=== PATIENT | male | born 1940 | race Hispanic/Latino ===

== ENCOUNTER 2019-04-19 20:08 | Emergency (ER) | payer MEDICARE ==
[~2019-04-19] VITALS: Ht 172.7 cm; Wt 70.8 kg
--- NOTE | 2019-04-19 21:45 | Diagnostic Imaging Report ---
Pelvis complete Indication: ^s/p fall ^20190419 ^2114 ^Y Technique: Two AP images of the pelvis obtained. Comparison: None Findings: Pelvis positioning is suboptimal. Right hip prosthesis is present. The acetabular cup is well seated without surrounding lucency. The femoral stem appears to be dislocated from the acetabular cup. There is no acute fracture associated with the hardware. The left hip is intact and normal in morphology. There are degenerative changes of the lower lumbar spine with partial sacralization L5 on the right. No diastases the pubic symphysis or sacroiliac joints. Pubic rami are intact. IMPRESSION: Suboptimal patient positioning. A dislocated right hip prosthesis is suspected cannot be excluded. No acute fracture. Signed by: Dr. Jeanie Gillespie MD on 04/19/2019 9:42 PM
--- NOTE | 2019-04-19 21:47 | Diagnostic Imaging Report ---
EXAMINATION: CHEST SINGLE (PORTABLE) COMPARISON: None INDICATION: Fall ^s/p fall ^20190419 ^2114 ^Y DISCUSSION: Frontal view of the chest obtained at 1 hours. The patient's chin overlies the upper chest. HEART AND MEDIASTINUM: The heart is normal in size. The aorta is tortuous LINES: None. LUNGS: Low lung volumes.. No pneumonia or pulmonary edema. PLEURA: No pleural effusion or pneumothorax. BONES AND SOFT TISSUES: No acute fracture or dislocation. There are degenerative changes of the spine. The soft tissues are normal. IMPRESSION: No acute traumatic pathology by x-ray. Signed by: Dr. Jeanie Gillespie MD on 04/19/2019 9:44 PM
--- NOTE | 2019-04-19 21:53 | Diagnostic Imaging Report ---
EXAMINATION: Head CT without contrast. HISTORY:Fall. COMPARISON:None. TECHNIQUE: Multidetector axial images were obtained from the foramen magnum to the vertex without contrast. The images were reconstructed using brain and bone algorithms. Thin section brain images were reformatted into coronal and sagittal planes. Dose modulation, iterative reconstruction, and/or weight based adjustment of the mA/kV was utilized to reduce the radiation dose to as low as reasonably achievable. Intravenous contrast: None IMAGE QUALITY: Acceptable. FINDINGS: Skull/scalp: Mild right frontal scalp soft tissue edema/hematoma and moderate right periorbital soft tissue edema/hematoma that extends over the right prezygomatic region. No radiopaque foreign body or soft tissue emphysema. No acute depressed or displaced calvarial fracture. Age indeterminate possible acute fracture of left nasal bone is partially visualized. Parenchyma: Nonspecific bilateral frontoparietal white matter patchy and confluent hypodensity are likely related to small vessel ischemic changes. No acute hemorrhage, mass or acute major vascular territorial infarct. Arteries: No density suggestive of thrombosis. Dural sinuses: No abnormal density suggestive of thrombosis. Ventricles: Moderate compensated dilatation due to volume loss. No hydrocephalus. Extra-axial spaces: Posterior fossa, retrocerebellar extra-axial cystic lesion with internal septation and mild regional mass effect represents an arachnoid cyst. Brain volume: Advanced generalized cerebral volume loss. Craniocervical junction: No mass, Chiari malformation, or basilar invagination. Sella: No mass. Paranasal/mastoid sinuses: Imaged portions unremarkable. IMPRESSION: 1. Mild right frontal scalp and moderate right periorbital soft tissue edema/hematoma. No acute calvarial fracture. 2. No acute posttraumatic intracranial abnormality. 3. Mild supratentorial white matter microvascular ischemic changes. 4. Advanced generalized cerebral volume loss. Signed by: Dr. Nenita Radford M.D. on 04/19/2019 9:50 PM
--- NOTE | 2019-04-19 22:00 | Diagnostic Imaging Report ---
History: Fall. Comparison studies: None Technique: Axial images were obtained through the cervical region.. Coronal and sagittal images reconstructed from the axial data. Dose modulation, iterative reconstruction, and/or weight based adjustment of the mA/kV was utilized to reduce the radiation dose to as low as reasonably achievable. Intravenous contrast: None Findings: Fractures: None. Soft tissue injuries: None. Atlantoaxial articulation: Intact. Alignment: Reversal of normal cervical lordosis is either positional or due to muscle spasm. No scoliosis. 2 mm grade 1 anterolisthesis at C7-T1, likely degenerative. Cervicomedullary junction: No abnormalities. The foramen magnum is patent. Soft tissues: No abnormalities. Vertebrae: No fractures, infection or neoplasm. Degenerative changes: Moderate to severe degenerative changes in the anterior atlantodental joint. C2-C3: Mild bilateral foraminal stenosis due to facet and uncovertebral arthrosis. C3-C4: Posterior disc osteophyte complex results in moderate canal stenosis. Severe right and moderate left foraminal stenosis due to facet and uncovertebral arthrosis. C4-C5: Moderate bilateral foraminal stenosis due to facet and uncovertebral arthrosis. C5-C6: Severe degenerative disc disease. Posterior disc osteophyte complex results in moderate canal stenosis. Severe bilateral foraminal stenosis due to facet and uncovertebral arthrosis. C6-C7: Moderate to severe degenerative disc disease. Posterior disc osteophyte complex results in mild canal stenosis. Severe right and mild left foraminal stenosis due to facet and uncovertebral arthrosis. C7-T1: Severe left foraminal stenosis due to facet and uncovertebral arthrosis. IMPRESSION: 1. No acute cervical spine fracture or dislocation. Reversal of normal cervical lordosis is either positional or due to muscle spasm. 2. Ligament, spinal cord and or vascular abnormalities cannot be excluded on the basis of this examination. 3. Cervical spondylosis as detailed above. Signed by: Dr. Nenita Radford M.D. on 04/19/2019 9:57 PM
--- NOTE | 2019-04-19 22:06 | Diagnostic Imaging Report ---
History:Fall. Comparison studies: None Technique: Axial images were obtained through the maxillofacial region. Coronal and sagittal images reconstructed from the axial data. Dose modulation, iterative reconstruction, and/or weight based adjustment of the mA/kV was utilized to reduce the radiation dose to as low as reasonably achievable. Intravenous contrast: None Findings: Soft tissues: Moderate right periorbital and premaxillary soft tissue edema/hematoma. No soft tissue emphysema or radiopaque foreign body. Suboptimal evaluation due to dental amalgam artifacts. Bones: Acute mildly displaced fracture of bilateral nasal bones and frontal process of left maxilla. Orbits: Globes: Grossly intact. No retrobulbar hemorrhage. Extra or intraconal abnormalities: None. Paranasal sinuses: Mild mucosal thickening in bilateral ethmoid sinuses. Incidental finding: Multiple missing teeth, multifocal dental caries and endodontal disease, the activity of which is to be determined clinically. IMPRESSION: 1. Moderate right periorbital and premaxillary soft tissue edema/hematoma. 2. Acute mildly displaced fracture of bilateral nasal bones and frontal process of left maxilla. Signed by: Dr. Nenita Radford M.D. on 04/19/2019 10:02 PM
--- NOTE | 2019-04-19 23:55 | Diagnostic Imaging Report ---
Hip complete Indication: ^EVAL FINDING ON PELVIS XRAY ^Y Technique: AP and frogleg views of right hip obtained. Comparison: Pelvis x-rays 2110 hours Findings: No change in position of the right hip prosthesis. Dislocation of the femoral stem from the acetabular cup cannot be excluded. There is callus formation adjacent to the inferior tip of the femoral component suggestive of a healed fracture. There are 3 screws in the proximal diaphysis without evidence of fracture or lucency to suggest loosening. IMPRESSION: No change in appearance of the right hip prosthesis. Again, dislocation of the prosthesis cannot be excluded. Healed fracture deformity of the proximal diaphysis of the femur. Signed by: Dr. Jeanie Gillespie MD on 04/19/2019 11:52 PM
== END 2019-04-20 01:36 ==
LOC: ER 20:08
DX: S00.83XA Contusion of other part of head, initial encounter (principal); S00.11XA Contusion of right eyelid and periocular area, initial encounter; S02.2XXA Fracture of nasal bones, initial encounter for closed fracture; W18.30XA Fall on same level, unspecified, initial encounter; Y92.128 Other place in nursing home as the place of occurrence of the external cause; G30.9 Alzheimer's disease, unspecified; F02.80 Dementia in other diseases classified elsewhere, unspecified severity, without behavioral disturbance, psychotic disturbance, mood disturbance, and anxiety; I10 Essential (primary) hypertension; F41.9 Anxiety disorder, unspecified; E03.9 Hypothyroidism, unspecified; M47.892 Other spondylosis, cervical region; Z94.4 Liver transplant status
CPT/HCPCS: 70450; 70486; 71045; 72125; 72170; 99283